=== PATIENT | female | born 1955 | race Hispanic/Latino ===

== ENCOUNTER → 2025-01-22 | Outpatient (REF) | payer MEDICARE ==
[~2025-01-22] MED LIST: ACTOS15 MG PO; BUPROPION HCL100 MG PO; CRESTOR10 MG PO; METFORMIN HCL500 MG PO; TRIBENZOR 40-11 EAC1 PO; VIT D3 PO
== END ==
LOC: US 12:04
PROVIDERS: ATTEND Nurse Practitioner Family
DX: E04.2 Nontoxic multinodular goiter (principal)
CPT/HCPCS: 10005; 88112; 88172; 88173; 88305